=== PATIENT | male | born 1980 | race African-American/Black ===

== ENCOUNTER 2019-11-20 20:22 | Emergency (ER) | payer SELFPAY ==
[2019-11-20] MEDS ORDERED: Oxymetazoline 0.05% Nasal Spray 15 ML Bottle NAS ONE (20:39)
--- NOTE | 2019-11-20 20:50 | EDM.PDOC ---
ED [facility] GENERAL MEDICAL PROBLEM - General Chief Complaint: ENT Problem Stated Complaint: NOSE BLEED Time Seen by Provider: 11/20/19 20:47 Source of Information: Reports: Patient History Limitations: Reports: No Limitations - History of Present Illness INITIAL COMMENTS - FREE TEXT/NARRATIVE: Patient is a 39-year-old male with no significant past medical history presenting with chief complaint of epistaxis. Patient states the nosebleed started last night and resolve spontaneously. Patient reports having 2 further episodes today and continued to bleed tonight so came into the emergency department. Patient states completed initially stop with direct pressure. Patient denies any trauma to the nose but does admit to picking his nose every once in a while. Patient has not done any other intervention other than direct pressure. Patient felt symptoms were more severe today so came into the ER. Pmhx: None Pshx: None Family Hx: noncontributory Smoking history? no Etoh use? none Drug use? none In addition to that documented in the HPI above, the additional ROS was obtained : Constitutional: Denies fevers or chills Eyes: Denies vision changes ENMT: Denies sore throat CV: Denies chest pain Resp: Denies SOB GI: Denies vomiting or diarrhea : Denies painful urination MSK: Denies recent trauma Skin: Denies new rashes Heme: Denies bleeding disorders I have reviewed the triage vital signs Const: Well nourished, well developed, appears stated age Eyes: PERRL, no conjunctival injection HENT: Patient with bilateral epistaxis. Airway patent. Patient not in distress. NCAT, Neck supple without meningismus CV: RRR, Warm, well-perfused extremities RESP: CTAB, Unlabored respiratory effort GI: soft, non-tender, non-distended, no masses MSK: No gross deformities appreciated Skin: Warm, dry. No rashes Neuro: Alert, national sales executive II-XII grossly intact. Sensation and motor function of extremities grossly intact. Psych: Appropriate mood and affect Assessment and plan: Patient a 39-year-old male presenting with epistaxis. The patient's management initially consisted of direct pressure and Afrin. When these measures did not work, the patient had bilateral anterior nasal packing soaked with TXA. The patient was observed for another 15 to 20 minutes however he continued to have bleeding down the back of his throat spitting up a moderate amount of blood. The patient's labs did not demonstrate any clotting abnormalities. Since anterior packing did not control bleeding, the patient had bilateral posterior Rhino Rocket's placed with improvement of bleeding control. The patient was maintaining his airway during this entire emergency room stay not requiring intubation. However, given the possibility of posterior bleed, the patient was accepted for transfer by Dr. Clifton at [place]. Patient will likely require ENT evaluation there. Patient will go via ALS ambulance to monitor the patient' s airway and route. - Related Data Allergies Allergy/AdvReac Type Severity Reaction Status Date / Time No Known Allergies Allergy Verified 11/20/19 20:41 Home Meds: Home Meds . [No Known Home Meds] 11/20/19 [History] Past Medical History HEENT History: Reports: None Cardiovascular History: Reports: None Respiratory History: Reports: None Gastrointestinal History: Reports: None Genitourinary History: Reports: None Musculoskeletal History: Reports: None Neurological History: Reports: None Psychiatric History: Reports: None Endocrine/Metabolic History: Reports: None Insulin Pump Model and Client Executive: None Hematologic History: Reports: None Immunologic History: Reports: None Oncologic (Cancer) History: Reports: None Dermatologic History: Reports: None - Infectious Disease History Infectious Disease History: Reports: None - Past Surgical History Head Surgeries/Procedures: Reports: None Social & Family History - Family History Family Medical History: Noncontributory - Tobacco Use Smoking Status *Q: Current Every Day Smoker Years of Tobacco use: 10 Packs/Tins Daily: 0.5 - Caffeine Use Caffeine Use: Reports: Soda - Recreational Drug Use Recreational Drug Use: No ED ROS ENT - Review of Systems Review Of Systems: See Below ED EXAM, ENT - Physical Exam Exam: See Below Course - Vital Signs Last Recorded V/S: Last Vital Signs Temp 36.8 C 11/20/19 22:30 Pulse 80 11/20/19 22:30 Resp 18 11/20/19 22:30 BP 171/102 H 11/20/19 22:30 Pulse Ox 100 11/20/19 22:30 - Orders/Labs/Meds Orders: Active Orders 24 hr Category Date Time Status TYPE AND SCREEN [BBK] Stat Lab 11/20/19 21:55 Received Labs: Laboratory Tests 11/20/19 11/20/19 11/20/19 Range/Units 21:55 21:55 21:55 WBC 13.18 H (4.0-11.0) K/uL RBC 5.10 (4.50-5.90) M/uL Hgb 13.2 (13.0-17.0) g/dL Hct 41.8 (38.0-50.0) % MCV 82.0 (80.0-98.0) fL MCH 25.9 L (27.0-32.0) pg MCHC 31.6 (31.0-37.0) g/dL RDW Std Deviation 38.9 (28.0-62.0) fl RDW Coeff of Nora 13 (11.0-15.0) % Plt Count 318 (150-400) K/uL MPV 10.20 (7.40-12.00) fL Neut % (Auto) 55.6 (48.0-80.0) % Lymph % (Auto) 35.5 (16.0-40.0) % [place] % (Auto) 6.1 (0.0-15.0) % Eos % (Auto) 2.6 (0.0-7.0) % Baso % (Auto) 0.2 (0.0-1.5) % Neut # (Auto) 7.3 H (1.4-5.7) K/uL Lymph # (Auto) 4.7 H (0.6-2.4) K/uL [place] # (Auto) 0.8 (0.0-0.8) K/uL Eos # (Auto) 0.3 (0.0-0.7) K/uL Baso # (Auto) 0.0 (0.0-0.1) K/uL Nucleated RBC % 0.0 /100WBC Nucleated RBCs # 0 K/uL INR 0.90 Sodium 139 (136-148) mmol/L Potassium 4.5 (3.5-5.1) mmol/L Chloride 102 (98-107) mmol/L Carbon Dioxide 27.9 (21.0-32.0) mmol/L BUN 7 (7.0-18.0) mg/dL Creatinine 0.5 L (0.8-1.3) mg/dL Est Cr Clr Drug Dosing 209.17 mL/min Estimated GFR (MDRD) > 60.0 ml/min Glucose 95 (74-106) mg/dL Calcium 9.4 (8.5-10.1) mg/dL Total Bilirubin 0.2 (0.2-1.0) mg/dL AST 23 (15-37) IU/L ALT 60 (14-63) IU/L Alkaline Phosphatase 59 (46-116) U/L Total Protein 7.8 (6.4-8.2) g/dL Albumin 3.9 (3.4-5.0) g/dL Globulin 3.9 (2.6-4.0) g/dL Albumin/Globulin Ratio 1.0 (0.9-1.6) Meds: Medications Discontinued Medications Generic Name Dose Route Start Last Admin Trade Name Freq PRN Reason Stop Dose Admin Oxymetazoline HCl 1 ml 11/20/19 20:39 11/20/19 20:46 Afrin Original 0.05% Nasal [place] CHRISTINA 11/20/19 20:40 1 ml ONETIME ONE Administration Tranexamic Acid Confirm 11/20/19 21:20 11/20/19 22:00 Cyklokapron Administered 11/20/19 21:21 1,000 mg Dose Administration 1,000 mg .ROUTE .STK-MED ONE Departure - Departure Time of Disposition: 22:41 Disposition: DC/Tfer to Acute Hospital 02 Clinical Impression: Epistaxis - Discharge Information Referrals: PCP,None [Primary Care Provider] - Forms: ED Department Discharge Sepsis Event Note - Evaluation Sepsis Screening Result: No Definite Risk - Focused Exam Vital Signs: Vital Signs Temp Pulse Resp BP Pulse Ox 11/20/19 22:30 36.8 C 80 18 171/102 H 100 11/20/19 20:35 36.5 C 82 18 170/96 H 98 Date Exam was Performed: 11/20/19 Time Exam was Performed: 22:36 - My Orders Last 24 Hours: My Active Orders 11/20/19 21:55 TYPE AND SCREEN [BBK] Stat - Assessment/Plan Last 24 Hours: My Active Orders 11/20/19 21:55 TYPE AND SCREEN [BBK] Stat
[2019-11-20] MEDS ORDERED: Tranexamic Acid 1,000 MG in Sodium Chloride 0.9% 100 ML IV ONE (21:10)
[2019-11-20 22:23] LABS: BLOOD UREA NITROGEN,BUN 7 mg/dL (7.0-18.0); CARBON DIOXIDE,CO2 27.9 mmol/L (21.0-32.0); CHLORIDE,CL 102 mmol/L (98-107); GLUCOSE RANDOM 95 mg/dL (74-106); POTASSIUM,K 4.5 mmol/L (3.5-5.1); SODIUM,NA 139 mmol/L (136-148)
[2019-11-20] MEDS ORDERED: Morphine 10 MG/ML Syringe IVPUSH ONE (22:55)
== END 2019-11-20 23:14 ==
LOC: MW.ED 20:22
DX: R04.0 Epistaxis (principal); F17.210 Nicotine dependence, cigarettes, uncomplicated
CPT/HCPCS: 30903; 36415; 80053; 85025; 85610; 86850; 86900; 86901; 96374; 99284; A9270; J2270; 30905

== ENCOUNTER 2019-11-22 19:44 | Emergency (ER) | payer SELFPAY ==
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
[2019-11-22 21:34] LABS: BLOOD UREA NITROGEN,BUN 11 mg/dL (7.0-18.0); CARBON DIOXIDE,CO2 26.6 mmol/L (21.0-32.0); CHLORIDE,CL 105 mmol/L (98-107); GLUCOSE RANDOM 97 mg/dL (74-106); POTASSIUM,K 4.1 mmol/L (3.5-5.1); SODIUM,NA 141 mmol/L (136-148)
== END 2019-11-22 21:35 ==
LOC: MW.ED 19:44
DX: R04.0 Epistaxis (principal); F17.210 Nicotine dependence, cigarettes, uncomplicated
CPT/HCPCS: 30905; 36415; 80053; 85025; 99284; 99284-25